=== PATIENT | female | born 1945 | race Caucasian/White ===

== ENCOUNTER 2016-10-22 17:35 | Emergency (ER) | payer MEDICARE | END 2016-10-22 17:50 | disposition home or self-care (01) | LOC: BURERS 17:35 | DX: H10.33 Unspecified acute conjunctivitis, bilateral (principal); I10 Essential (primary) hypertension; E78.5 Hyperlipidemia, unspecified | CPT/HCPCS: 99282 ==

== ENCOUNTER 2020-04-05 14:44 | Emergency (ER) | payer MEDICARE ==
[2020-04-05 16:10] LABS: #Eosinphils 0.1 thou/uL (0.0-0.7); #Lymphocytes 0.9 thou/uL (1.20-3.40); #Monocytes 0.5 thou/uL (0.11-0.59); %Basophils 0.3 % (0.0-1.0); %Eosinophils 0.9 % (0.0-10.0); %Monocytes 4.4 % (0.0-10.0); %Neutrophils 86.5 % (42.0-75.0); Hemoglobin 14.4 g/dL (12.0-16.0); Mean Corpuscular HGB CONC 31.6 g/dL (32.0-36.0); Mean Corpuscular Hemoglobin 25.8 pg (27.0-31.0); Mean Corpuscular Volume 81.6 fL (78.0-98.0); Mean Platelet Volume 6.7 fL (7.4-10.4); Platelet Count 237 thou/uL (130-400); RBC Distribution Width 14.1 % (11.5-14.5); Red Blood Cell (RBC) Count 5.59 mill/uL (4.20-5.40); White Blood Cell (WBC) Count 11.5 thou/uL (4.8-10.8)
[2020-04-05] MEDS ORDERED: Ketorolac Tromethamine 30 MG/ML VIAL ONE (16:12)
[2020-04-05 16:28] LABS: ALT (SGPT) 14 U/L (8-55); AST (SGOT) 17 U/L (5-34); Alkaline Phosphatase 73 U/L (40-110); Anion Gap 17 mmol/L (10-20); BUN (Urea Nitrogen) 16 mg/dL (9.8-20.1); Bilirubin, Total 0.7 mg/dL (0.2-1.2); Calc. Creatinine Clearance 0 mL/min (70-130); Calcium 9.1 mg/dL (7.8-10.44); Carbon Dioxide 24 mmol/L (23-31); Chloride 105 mmol/L (98-107); Globulin 3.1 g/dL (2.4-3.5); Glucose 134 mg/dL (83-110); Potassium 3.6 mmol/L (3.5-5.1); Protein, Total 7.1 g/dL (6.0-8.3); Sodium 142 mmol/L (136-145)
--- NOTE | 2020-04-05 17:38 | RAD ---
LEFT HIP FOUR VIEWS: Date: 04-05-2020 FINDINGS: An intertrochanteric fracture of the hip is present with displacement. The fracture line extends down into the upper femoral shaft. There is no dislocation of the femoral head. The bones are osteopenic. IMPRESSION: Intertrochanteric fracture. POS: HOME
--- NOTE | 2020-04-05 17:39 | RAD ---
PORTABLE CHEST: Date: 04-05-2020 An AP portable film at 1556 shows mild to moderate cardiomegaly. There is no vascular congestion or e cecelia. The lungs are clear. A tiny subcentimeter nodule in the right upper lobe is probably a calcifie d granuloma. IMPRESSION: Cardiomegaly. POS: HOME
== END 2020-04-05 17:20 | disposition short-term general hospital (02) ==
LOC: BURERS 14:44
DX: S72.142A Displaced intertrochanteric fracture of left femur, initial encounter for closed fracture (principal); W01.0XXA Fall on same level from slipping, tripping and stumbling without subsequent striking against object, initial encounter; I10 Essential (primary) hypertension; E78.5 Hyperlipidemia, unspecified
CPT/HCPCS: 36415; 71045; 80053; 85025; 93005; 96374; J1885

== ENCOUNTER 2020-05-23 12:35 | Emergency (ER) | payer MEDICARE ==
[2020-05-23] MEDS ORDERED: Ketorolac Tromethamine 30 MG/ML VIAL ONE (13:51)
[2020-05-23] MEDS ORDERED: traMADol HCl 50 MG TAB ONE (13:56)
== END 2020-05-23 14:12 | disposition home or self-care (01) ==
LOC: BURERS 12:35
DX: S83.92XA Sprain of unspecified site of left knee, initial encounter (principal); S70.02XA Contusion of left hip, initial encounter; W22.8XXA Striking against or struck by other objects, initial encounter; I10 Essential (primary) hypertension; E78.5 Hyperlipidemia, unspecified
CPT/HCPCS: 96372; J1885